=== PATIENT | male | born 1965 | race Caucasian/White ===

== ENCOUNTER 2017-08-30 12:07 | Outpatient (CLI) | payer BC ==
--- NOTE | 2017-08-30 13:39 | Diagnostic Imaging Report ---
Indication: Pain Findings: 3 views of the left shoulder were obtained. No acute fracture or malalignment identified. Soft tissues are unremarkable. Impression: Negative exam
== END 2017-08-30 14:07 | disposition home or self-care (01) ==
LOC: RAD 12:07
DX: M25.512 Pain in left shoulder (principal)